=== PATIENT | female | born 1965 | race Caucasian/White ===

== ENCOUNTER 2017-07-28 13:11 | Emergency (ER) | payer OTHER ==
[~2017-07-28] VITALS: Ht 162.6 cm; Wt 49.0 kg
[~2017-07-28 13:11] MED LIST: AMBIEN5 MG PO; BACTRIM DS TAB1 EACH PO; CEPHALEXIN500 MG PO; CYMBALTA60 MG PO; EYE ALLERGY REL15 M1 OPTH; FETZIMA80 MG PO; FLONASE ALLERG9.9 ML NS; GAS RELIEF125 M1 PO; HYDROCODON-ACE1 EA10 PO; IMITREX100 MG PO; LORAZEPAM1 MG PO; LYRICA75 MG PO; MELATONIN5 M4 PO; METHADONE HCL5 MG; MOBIC15 MG PO; SEROQUEL100 MG PO; SUDOGEST30 MG PO; TIMOLOL MALEATE5 MG PO; TYLENOL325 MG PO; ZANAFLEX4 MG PO
[2017-07-28] MEDS ORDERED: MELOXICAM15 MG PO (13:30)
[2017-07-28] MEDS ORDERED: FUROSEMIDE40 MG PO (13:31)
--- OUTSIDE RECORDS SUMMARY | 2017-07-28 14:42 | XMS ---
Demographics + + + | Address | [address] | | | [place] [address] | + + + | Preferred Language | Unknown | + + + | Marital Status | Unknown | + + + | Holiness Affiliation | Unknown | + + + | Race | Unknown | + + + | Ethnic Group | Unknown | + + + Author + + + | Author | [facility] | + + + | Organization | [facility] | + + + | Address | [address] | | | [place] [address] | + + + | Phone | | + + + Care Team Providers + + + + | Care Mobile Home Technician Name | Role | Phone | + + + + Unavailable | Unavailable | + + + + PROBLEMS +---------+ + + +--------+ + + | Type | Condition | ICD9-CM | [id number] | Onset | Condition | SNOMED | | | | Code | Code | Dates | Status | Code | +---------+ + + +--------+ + + | Problem | Vitamin | D51.8 | | | Active | [id number] | | | B12 | | | | | | | | deficiency | | | | | | | | (dietary) | | | | | | | | anemia | | | | | | +---------+ + + +--------+ + + | Problem | PTSD | | F43.10 | | Active | 49553821 | | | (post-trau | | | | | | | | matic | | | | | | | | stress | | | | | | | | disorder) | | | | | | +---------+ + + +--------+ + + | Problem | History of | Z98.89 | | | Active | [id number] | | | gastric | | | | | | | | bypass | | | | | | +---------+ + + +--------+ + + | Problem | Low back | | M54.5 | | Active | 566243725 | | | pain | | | | | | +---------+ + + +--------+ + + | Problem | Fibromyalg | | M79.7 | | Active | 362155458 | | | ia | | | | | | +---------+ + + +--------+ + + | Problem | History of | Z87.39 | | | Active | [id number] | | | | | | | | | | | fibromyalg | | | | | | | | ia | | | | | | +---------+ + + +--------+ + + | Problem | Severe | F32.2 | | | Active | 425819979 | | | major | | | | | | | | depression | | | | | | +---------+ + + +--------+ + + | Problem | Chronic | | G89.4 | | Active | 403303978 | | | pain | | | | | | | | syndrome | | | | | | +---------+ + + +--------+ + + | Problem | Osteoarthr | | M19.90 | | Active | 757523970 | | | itis | | | | | | +---------+ + + +--------+ + + | Problem | JOINT | 719.47 | | | Active | 362514521 | | | PAIN-ANKLE | | | | | | +---------+ + + +--------+ + + | Problem | FX CARPAL | 814.00 | | | Active | 1665717 | | | BONE | | | | | | | | NOS-CLOSED | | | | | | +---------+ + + +--------+ + + | Problem | HAND | 959.4 | | | Active | 846343255 | | | INJURY NOS | | | | | | +---------+ + + +--------+ + + | Problem | JOINT | 719.43 | | | Active | [id number] | | | PAIN-FOREA | | | | | | | | RM | | | | | | +---------+ + + +--------+ + + | Problem | Localized | 715.34 | | | Active | 41485244 | | | osteoarthr | | | | | | | | osis | | | | | | | | uncertain | | | | | | | | if primary | | | | | | | | or | | | | | | | | secondary | | | | | | | | NOS, hand | | | | | | +---------+ + + +--------+ + + | Problem | FX | 815.00 | | | Active | 383612285 | | | METACARPAL | | | | | | | | | | | | | | | | NOS-CLOSED | | | | | | +---------+ + + +--------+ + + | Problem | Greater | 726.5 | | | Active | 64522239 | | | Trochanter | | | | | | | | ic | | | | | | | | Bursitis | | | | | | +---------+ + + +--------+ + + ALLERGIES Unknown Allergies SOCIAL HISTORY No smoking Hx information available PLAN OF CARE VITAL SIGNS MEDICATIONS + + +--------+ + + + +--------+ | Medicati | Instruct | Dosage | Frequenc | Start | End Date | Duration | Status | | on | ions | | y | Date | | | | + + +--------+ + + + +--------+ | KCL 20 | po Daily | 1 | | 29 Kasi, | | 30 | Active | | mEq | with | | | 2016 | | | | | | food | | | | | | | + + +--------+ + + + +--------+ RESULTS No Results PROCEDURES No Known procedures IMMUNIZATIONS No Known Immunizations"
--- OUTSIDE RECORDS SUMMARY | 2017-07-28 14:42 | XMS ---
Demographics + + + | Address | [address] | | | [place] [address] | + + + | Preferred Language | Unknown | + + + | Marital Status | Unknown | + + + | Restoration Affiliation | Unknown | + + + | Race | Unknown | + + + | Ethnic Group | Unknown | + + + Author + + + | Author | [facility] | + + + | Organization | [facility] | + + + | Address | [address] | | | [place] [address] | + + + | Phone | | + + + Care Team Providers + + + + | Care Capacitor Assembler Name | Role | Phone | + + + + Unavailable | Unavailable | + + + + PROBLEMS +---------+ + + +--------+ + + | Type | Condition | ICD9-CM | [id number] | Onset | Condition | SNOMED | | | | Code | Code | Dates | Status | Code | +---------+ + + +--------+ + + | Problem | Vitamin | D51.8 | | | Active | [id number] | | | B12 | | | | | | | | deficiency | | | | | | | | (dietary) | | | | | | | | anemia | | | | | | +---------+ + + +--------+ + + | Problem | PTSD | | F43.10 | | Active | 26306032 | | | (post-trau | | | | | | | | matic | | | | | | | | stress | | | | | | | | disorder) | | | | | | +---------+ + + +--------+ + + | Problem | History of | Z98.89 | | | Active | 410535844 | | | gastric | | | | | | | | bypass | | | | | | +---------+ + + +--------+ + + | Problem | Low back | | M54.5 | | Active | 565419725 | | | pain | | | | | | +---------+ + + +--------+ + + | Problem | Fibromyalg | | M79.7 | | Active | 839972783 | | | ia | | | | | | +---------+ + + +--------+ + + | Problem | History of | Z87.39 | | | Active | [id number] | | | | | | | | | | | fibromyalg | | | | | | | | ia | | | | | | +---------+ + + +--------+ + + | Problem | Severe | F32.2 | | | Active | 759597188 | | | major | | | | | | | | depression | | | | | | +---------+ + + +--------+ + + | Problem | Chronic | | G89.4 | | Active | 175760814 | | | pain | | | | | | | | syndrome | | | | | | +---------+ + + +--------+ + + | Problem | Osteoarthr | | M19.90 | | Active | 999713099 | | | itis | | | | | | +---------+ + + +--------+ + + | Problem | JOINT | 719.47 | | | Active | 873143579 | | | PAIN-ANKLE | | | | | | +---------+ + + +--------+ + + | Problem | FX CARPAL | 814.00 | | | Active | 3619195 | | | BONE | | | | | | | | NOS-CLOSED | | | | | | +---------+ + + +--------+ + + | Problem | HAND | 959.4 | | | Active | 839538152 | | | INJURY NOS | | | | | | +---------+ + + +--------+ + + | Problem | JOINT | 719.43 | | | Active | 091838760 | | | PAIN-FOREA | | | | | | | | RM | | | | | | +---------+ + + +--------+ + + | Problem | Localized | 715.34 | | | Active | 37672659 | | | osteoarthr | | | [...] | 815.00 | | | Active | [id number] | | | METACARPAL | | | | | | | | | | | | | | | | NOS-CLOSED | | | | | | +---------+ + + +--------+ + + | Problem | Greater | 726.5 | | | Active | 50496794 | | | Trochanter | | | | | | | | ic | | | | | | | | Bursitis | | | | | | +---------+ + + +--------+ + + ALLERGIES Unknown Allergies SOCIAL HISTORY No smoking Hx information available PLAN OF CARE VITAL SIGNS MEDICATIONS + + + + + + + +--------+ | Medicati | Instruct | Dosage | Frequenc | Start | End Date | Duration | Status | | on | ions | | y | Date | | | | + + + + + + + +--------+ | KCL 20 | po bid | 1 tablet | 12h | 13 Claudy, | | 30 | Active | | mEq | | | | 2016 | | | | + + + + + + + +--------+ | Lasix 40 | Orally | 1 tab | | 13 Claudy, | | 30 | Active | | MG | once a | | | 2017 | | day(s) | | | | day in | | | | | | | | | am | | | | | | | + + + + + + + +--------+ RESULTS No Results PROCEDURES No Known procedures IMMUNIZATIONS No Known Immunizations"
--- OUTSIDE RECORDS SUMMARY | 2017-07-28 14:42 | XMS ---
Demographics + + + | Address | [address] | | | [place] [address] | + + + | Preferred Language | Unknown | + + + | Marital Status | Unknown | + + + | Jainism Affiliation | Unknown | + + + | Race | Unknown | + + + | Ethnic Group | Unknown | + + + Author + + + | Author | [facility] | + + + | Organization | [facility] | + + + | Address | [address] | | | [place] [address] | + + + | Phone | | + + + Care Team Providers + + + + | Care School Attendance Secretary Name | Role | Phone | + + + + Unavailable | Unavailable | + + + + PROBLEMS +---------+ + + +--------+ + + | Type | Condition | ICD9-CM | [id number] | Onset | Condition | SNOMED | | | | Code | Code | Dates | Status | Code | +---------+ + + +--------+ + + | Problem | Vitamin | D51.8 | | | Active | 62832288 | | | B12 | | | | | | | | deficiency | | | | | | | | (dietary) | | | | | | | | anemia | | | | | | +---------+ + + +--------+ + + | Problem | PTSD | | F43.10 | | Active | 21528937 | | | (post-trau | | | | | | | | matic | | | | | | | | stress | | | | | | | | disorder) | | | | | | +---------+ + + +--------+ + + | Problem | History of | Z98.89 | | | Active | 827902776 | | | gastric | | | | | | | | bypass | | | | | | +---------+ + + +--------+ + + | Problem | Low back | | M54.5 | | Active | 284563561 | | | pain | | | | | | +---------+ + + +--------+ + + | Problem | Fibromyalg | | M79.7 | | Active | 164903229 | | | ia | | | | | | +---------+ + + +--------+ + + | Problem | History of | Z87.39 | | | Active | 828208745 | | | | | | | | | | | fibromyalg | | | | | | | | ia | | | | | | +---------+ + + +--------+ + + | Problem | Severe | F32.2 | | | Active | 526806052 | | | major | | | | | | | | depression | | | | | | +---------+ + + +--------+ + + | Problem | Chronic | | G89.4 | | Active | 287601523 | | | pain | | | | | | | | syndrome | | | | | | +---------+ + + +--------+ + + | Problem | Osteoarthr | | M19.90 | | Active | 219151479 | | | itis | | | | | | +---------+ + + +--------+ + + | Problem | JOINT | 719.47 | | | Active | 217362298 | | | PAIN-ANKLE | | | | | | +---------+ + + +--------+ + + | Problem | FX CARPAL | 814.00 | | | Active | 9595617 | | | BONE | | | | | | | | NOS-CLOSED | | | | | | +---------+ + + +--------+ + + | Problem | HAND | 959.4 | | | Active | 373287653 | | | INJURY NOS | | | | | | +---------+ + + +--------+ + + | Problem | JOINT | 719.43 | | | Active | [id number] | | | PAIN-FOREA | | | | | | | | RM | | | | | | +---------+ + + +--------+ + + | Problem | Localized | 715.34 | | | Active | 09251602 | | | osteoarthr | | | [...] | 815.00 | | | Active | 851285134 | | | METACARPAL | | | | | | | | | | | | | | | | NOS-CLOSED | | | | | | +---------+ + + +--------+ + + | Problem | Greater | 726.5 | | | Active | 44240508 | | | Trochanter | | | | | | | | ic | | | | | | | | Bursitis | | | | | | +---------+ + + +--------+ + + ALLERGIES No Information SOCIAL HISTORY Never Assessed PLAN OF CARE VITAL SIGNS MEDICATIONS Unknown Medications RESULTS No Results PROCEDURES No Known procedures IMMUNIZATIONS No Known Immunizations MEDICAL (GENERAL) HISTORY + + +------+ | Type | Description | Date | + + +------+ | Medical History | gastric bypass 1997 | | + + +------+ | Medical History | depression | | + + +------+ | Medical History | anxiety | | + + +------+ | Medical History | spinal defect | | + + +------+ | 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 | | + + +------+ | Medical History | Spondylolisthesis in L5. | | + + +------+ | Surgical History | gastric bypass | | + + +------+ | Surgical History | C section x1 | | + + +------+ | Surgical History | Umbilical hernia repair | | | | abdominal x2 | | + + +------+ | Surgical History | cholecystectomy | | + + +------+ | Surgical History | fistula | | + + +------+ | Hospitalization History | surgery | | + + +------+ | Hospitalization History | childbirth x 3 | | + + +------+"
--- OUTSIDE RECORDS SUMMARY | 2017-07-28 14:42 | XMS ---
Demographics + + + | Address | [address] | | | [place] [address] | + + + | Preferred Language | Unknown | + + + | Marital Status | Unknown | + + + | Mandaen Affiliation | Unknown | + + + | Race | Unknown | + + + | Ethnic Group | Unknown | + + + Author + + + | Author | [facility] | + + + | Organization | [facility] | + + + | Address | [address] | | | [place] [address] | + + + | Phone | | + + + Care Team Providers + + + + | Care Shipper Name | Role | Phone | + + + + Unavailable | Unavailable | + + + + PROBLEMS +---------+ + + +--------+ + + | Type | Condition | ICD9-CM | [id number] | Onset | Condition | SNOMED | | | | Code | Code | Dates | Status | Code | +---------+ + + +--------+ + + | Problem | Vitamin | D51.8 | | | Active | [id number] | | | B12 | | | | | | | | deficiency | | | | | | | | (dietary) | | | | | | | | anemia | | | | | | +---------+ + + +--------+ + + | Problem | PTSD | | F43.10 | | Active | [id number] | | | (post-trau | | | | | | | | matic | | | | | | | | stress | | | | | | | | disorder) | | | | | | +---------+ + + +--------+ + + | Problem | History of | Z98.89 | | | Active | [id number] | | | gastric | | | | | | | | bypass | | | | | | +---------+ + + +--------+ + + | Problem | Low back | | M54.5 | | Active | 036883259 | | | pain | | | | | | +---------+ + + +--------+ + + | Problem | Fibromyalg | | M79.7 | | Active | 259585161 | | | ia | | | | | | +---------+ + + +--------+ + + | Problem | History of | Z87.39 | | | Active | 172437547 | | | | | | | | | | | fibromyalg | | | | | | | | ia | | | | | | +---------+ + + +--------+ + + | Problem | Severe | F32.2 | | | Active | 389554282 | | | major | | | | | | | | depression | | | | | | +---------+ + + +--------+ + + | Problem | Chronic | | G89.4 | | Active | 347666258 | | | pain | | | | | | | | syndrome | | | | | | +---------+ + + +--------+ + + | Problem | Osteoarthr | | M19.90 | | Active | 305085335 | | | itis | | | | | | +---------+ + + +--------+ + + | Problem | JOINT | 719.47 | | | Active | 610508874 | | | PAIN-ANKLE | | | | | | +---------+ + + +--------+ + + | Problem | FX CARPAL | 814.00 | | | Active | 8919970 | | | BONE | | | | | | | | NOS-CLOSED | | | | | | +---------+ + + +--------+ + + | Problem | HAND | 959.4 | | | Active | 862875919 | | | INJURY NOS | | | | | | +---------+ + + +--------+ + + | Problem | JOINT | 719.43 | | | Active | [id number] | | | PAIN-FOREA | | | | | | | | RM | | | | | | +---------+ + + +--------+ + + | Problem | Localized | 715.34 | | | Active | 75800615 | | | osteoarthr | | | [...] | 815.00 | | | Active | [id number] | | | METACARPAL | | | | | | | | | | | | | | | | NOS-CLOSED | | | | | | +---------+ + + +--------+ + + | Problem | Greater | 726.5 | | | Active | 56746839 | | | Trochanter | | | | | | | | ic | | | | | | | | Bursitis | | | | | | +---------+ + + +--------+ + + ALLERGIES No Information SOCIAL HISTORY Never Assessed PLAN OF CARE VITAL SIGNS MEDICATIONS + + +--------+ +--------+ + +--------+ | Medicati | Instruct | Dosage | Frequenc | Start | End Date | Duration | Status | | on | ions | | y | Date | | | | + + +--------+ +--------+ + +--------+ | Lyrica | po bid | 1tabs | 12h | | | 30 | Active | | 75 mg | | | | | | | | + + +--------+ +--------+ + +--------+ RESULTS No Results PROCEDURES No [...] weight loss about | | | | 0665-2925 | | + + +------+ | Medical [...]
--- OUTSIDE RECORDS SUMMARY | 2017-07-28 14:42 | XMS ---
Demographics + + + | Address | [address] | | | [place] [address] | + + + | Preferred Language | Unknown | + + + | Marital Status | Unknown | + + + | Yazdanism Affiliation | Unknown | + + + | Race | Unknown | + + + | Ethnic Group | Unknown | + + + Author + + + | Author | [facility] | + + + | Organization | [facility] | + + + | Address | [address] | | | [place] [address] | + + + | Phone | | + + + Care Team Providers + + + + | Care Assistant Case Manager Name | Role | Phone | + + + + Unavailable | Unavailable | + + + + PROBLEMS +---------+ + + +--------+ + + | Type | Condition | ICD9-CM | IVL00-UN | Onset | Condition | SNOMED | | | | Code | Code | Dates | Status | Code | +---------+ + + +--------+ + + | Problem | Vitamin | D51.8 | | | Active | [id number] | | | B12 | | | | | | | | deficiency | | | | | | | | (dietary) | | | | | | | | anemia | | | | | | +---------+ + + +--------+ + + | Problem | PTSD | | F43.10 | | Active | 52936642 | | | (post-trau | | | | | | | | matic | | | | | | | | stress | | | | | | | | disorder) | | | | | | +---------+ + + +--------+ + + | Problem | History of | Z98.89 | | | Active | [id number] | | | gastric | | | | | | | | bypass | | | | | | +---------+ + + +--------+ + + | Problem | Low back | | M54.5 | | Active | [id number] | | | pain | | | | | | +---------+ + + +--------+ + + | Problem | Fibromyalg | | M79.7 | | Active | 199430300 | | | ia | | | | | | +---------+ + + +--------+ + + | Problem | History of | Z87.39 | | | Active | 325555544 | | | | | | | | | | | fibromyalg | | | | | | | | ia | | | | | | +---------+ + + +--------+ + + | Problem | Severe | F32.2 | | | Active | [id number] | | | major | | | | | | | | depression | | | | | | +---------+ + + +--------+ + + | Problem | Chronic | | G89.4 | | Active | 187441676 | | | pain | | | | | | | | syndrome | | | | | | +---------+ + + +--------+ + + | Problem | Osteoarthr | | M19.90 | | Active | 216141347 | | | itis | | | | | | +---------+ + + +--------+ + + | Problem | JOINT | 719.47 | | | Active | 931878555 | | | PAIN-ANKLE | | | | | | +---------+ + + +--------+ + + | Problem | FX CARPAL | 814.00 | | | Active | 2659558 | | | BONE | | | | | | | | NOS-CLOSED | | | | | | +---------+ + + +--------+ + + | Problem | HAND | 959.4 | | | Active | [id number] | | | INJURY NOS | | | | | | +---------+ + + +--------+ + + | Problem | JOINT | 719.43 | | | Active | [id number] | | | PAIN-FOREA | | | | | | | | RM | | | | | | +---------+ + + +--------+ + + | Problem | Localized | 715.34 | | | Active | 76594528 | | | osteoarthr | | | [...] | 815.00 | | | Active | [id number] | | | METACARPAL | | | | | | | | | | | | | | | | NOS-CLOSED | | | | | | +---------+ + + +--------+ + + | Problem | Greater | 726.5 | | | Active | [id number] | | | Trochanter | | | | | | | | ic | | | | | | | | Bursitis | | | | | | +---------+ + + +--------+ + + ALLERGIES Unknown Allergies SOCIAL HISTORY No smoking Hx information available PLAN OF CARE + +---------+ | Activity | Details | + +---------+ +---+ | | +---+ + + + | Follow Up | prn Reason:null | + + + VITAL SIGNS + + + + | Height | 64 in | 2017-04-30 | + + + + | Weight | 123.0 lbs | 2017-04-30 | + + + + | BMI | 21.11 kg/m2 | 2017-04-30 | + + + + | Heart Rate | 82 /min | 2017-04-30 | + + + + | Blood pressure systolic | 76 mm Hg | 2017-04-30 | + + + + | Blood pressure diastolic | 51 mm Hg | 2017-04-30 | + + + + MEDICATIONS + + + + + + + +--------+ | Medicati | Instruct | Dosage | Frequenc | Start | End Date | Duration | Status | | on | ions | | y | Date | | | | + + + + + + + +--------+ | Sudafed | po 1 am | 1 tab | | 30 Mar, | | 15 | Active | | 30 mg | 1 noon | | | 2016 | | | | + + + + + + + +--------+ | Garamyci | Ophthalm | 1 drop | 4h | 06 May, | | 10 | Active | | n 0.3 % | ic every | into | | 2016 | | day(s) | | | | 4 hrs | affected | | | | | | | | | eye | | | | | | + + + + + + + +--------+ | Zolpidem | Orally | 1 tablet | 24h | | | | Active | | | Once a | at | | | | | | | Tartrate | day | bedtime | | | | | | | 10 MG | | as | | | | | | | | | needed | | | | | | + + + + + + + +--------+ | L-Methyl | Orally | 1 tablet | | | | | Active | | folate | once | | | | | | | | 15 MG | day | | | | | | | + + + + + + + +--------+ | Gas | | | | | | | Active | | Relief | | | | | | | | + + + + + + + +--------+ | Tizanidi | | TAKE 1 | | | | 30 | Active | | ne HCl 4 | | TABLET | | | | | | | | | BY MOUTH | | | | | | | | | EVERY 8 | | | | | | | | | HOURS | | | | | | | | | | | | | | | | | | NEEDED | | | | | | + + + + + + + +--------+ | Vitamin | Orally | 1 | | | | | Active | | D | Once a | capsule | | | | | | | (Ergocal | Week | | | | | | | | ciferol) | | | | | | | | | [address] | | | | | | | | | UNIT | | | | | | | | + + + + + + + +--------+ | Lyrica | po bid | 1tabs | 12h | | | 30 | Active | | 75 mg | | | | | | | | + + + + + + + +--------+ | Fluticas | Nasally | 2 spray | 24h | | | | Active | | one | Once a | in each | | | | | | | Propiona | day | nostril | | | | | | | te 50 | | | | | | | | | MCG/ACT | | | | | | | | + + + + + + + +--------+ | Loratadi | Orally | 1 tablet | 24h | | | | Active | | ne | Once a | on the | | | | | | | Allergy | day | tongue | | | | | | | Relief | | and | | | | | | | 10 MG | | allow to | | | | | | | | | | | | | | | | | | dissolve | | | | | | + + + + + + + +--------+ | Mucus | Orally | 1 tablet | 4h | | | | Active | | Relief | every 4 | as | | | | | | | DM | hrs | needed | | | | | | | 20-400 | | | | | | | | | MG | | | | | | | | + + + + + + + +--------+ | Fetzima | Orally | 1 | 24h | | | | Active | | 60 mg | Once a | capsule | | | | | | | | day | | | | | | | + + + + + + + +--------+ | Seroquel | Orally | 1 tablet | 12h | | | | Active | | 200 MG | Twice a | | | | | | | | | day | | | | | | | + + + + + + + +--------+ | Nasacort | Nasally | 1 puff | 24h | | | | Active | | AQ 55 | Once a | in each | | | | | | | MCG/ACT | day | nostril | | | | | | + + + + + + + +--------+ | Tylenol | Orally | 2 tablet | 6h | | | | Active | | 325 MG | every 6 | as | | | | | | | | hrs | needed | | | | | | + + + + + + + +--------+ | Melatoni | Orally | 1 tablet | 24h | | | | Active | | n 5 MG | Once a | at | | | | | | | | day | bedtime | | | | | | | | | as | | | | | | | | | needed | | | | | | | | | with | | | | | | | | | food | | | | | | + + + + + + + +--------+ | vitamin | subcutan | 0.5 mL | | | | 30 | Active | | B-12 500 | eously | (500mcg/ | | | | | | | | twice a | 0.5ml) | | | | | | | | month | | | | | | | + + + + + + + +--------+ | Gabapent | Orally | 1 | 8h | | | | Active | | in 400 | Three | capsule | | | | | | | MG | times a | | | | | | | | | day | | | | | | | + + + + + + + +--------+ | Dulcolax | Rectal | 1 | 24h | | | | Active | | 10 MG | Once a | supposit | | | | | | | | day | ory as | | | | | | | | | needed | | | | | | + + + + + + + +--------+ | Xanax | Orally | 1 tablet | | 31 Aug, | | | Active | | 0.5 MG | Take 1 | | | 2016 | | | | | | hour | | | | | | | | | before | | | | | | | | | MRI | | | | | | | + + + + + + + +--------+ | Meloxica | Orally | 1 tablet | 24h | | | 30 | Active | | m 15 MG | Once a | | | | | | | | | day | | | | | | | + + + + + + + +--------+ | Eye | Ophthalm | 1 drop | 6h | | | | Active | | Allergy | ic Four | into | | | | | | | Relief | times a | affected | | | | | | | 0.027-0. | day | eye as | | | | | | | 315 % | | needed | | | | | | + + + + + + + +--------+ RESULTS + +--------+ + + | Name | Result | Date | Reference Range | + +--------+ + + | Comp. Metabolic | | 2017-04-30 | | | Panel (14) | | | | + +--------+ + + | Calcium, Serum | | | | + +--------+ + + | Glucose, Serum | | | | + +--------+ + + | BUN | | | | + +--------+ + + | Protein, Total, | | | | | Serum | | | | + +--------+ + + | Albumin, Serum | | | | + +--------+ + + | Bilirubin, Total | | | | + +--------+ + + | Alkaline | | | | | Phosphatase, S | | | | + +--------+ + + | AST (SGOT) | | | | + +--------+ + + | Potassium, Serum | | | | + +--------+ + + | Sodium, Serum | | | | + +--------+ + + | Chloride, Serum | | | | + +--------+ + + | Creatinine, Serum | | | | + +--------+ + + | ALT (SGPT) | | | | + +--------+ + + | Carbon Dioxide, | | | | | Total | | | | + +--------+ + + | BUN/Creatinine | | | | | Ratio | | | | + +--------+ + + | Globulin, Total | | | | + +--------+ + + | A/G Ratio | | | | + +--------+ + + | CBC | | 2017-04-30 | | + +--------+ + + | WBC | | | | + +--------+ + + | RBC | | | | + +--------+ + + | HEMOGLOBIN | | | | + +--------+ + + | HEMATOCRIT | | | | + +--------+ + + | MCV | | | | + +--------+ + + | MCH | | | | + +--------+ + + | MCHC | | | | + +--------+ + + | RDW | | | | + +--------+ + + | LYMPHOCYTES | | | | + +--------+ + + | NEUTROPHILS | | | | + +--------+ + + | BANDS | | | | + +--------+ + + | MONOCYTES | | | | + +--------+ + + | EOSINOPHILS | | | | + +--------+ + + | BASOPHILS | | | | + +--------+ + + | OTHER | | | | + +--------+ + + | PLATELET COUNT | | | | + +--------+ + + | Serum FE Panel | | 2017-04-30 | | + +--------+ + + | X ray : Chest 2 | | 2017-04-30 | | | views | | | | + +--------+ + + PROCEDURES + + + + + | Procedure | Date Ordered | Related Diagnosis | Body Site | + + + + + | Est Level II | April 30, 2017 | | | | Limited | | | | + + + + + IMMUNIZATIONS No Known Immunizations"
--- OUTSIDE RECORDS SUMMARY | 2017-07-28 14:42 | XMS ---
Demographics + + + | Address | [address] | | | [place] [address] | + + + | Preferred Language | Unknown | + + + | Marital Status | Unknown | + + + | Presybeterian Affiliation | Unknown | + + + | Race | Unknown | + + + | Ethnic Group | Unknown | + + + Author + + + | Author | [facility] | + + + | Organization | [facility] | + + + | Address | [address] | | | [place] [address] | + + + | Phone | | + + + Care Team Providers + + + + | Care Operations Support Representative Name | Role | Phone | + + + + Unavailable | Unavailable | + + + + PROBLEMS +---------+ + + +--------+ + + | Type | Condition | ICD9-CM | [id number] | Onset | Condition | SNOMED | | | | Code | Code | Dates | Status | Code | +---------+ + + +--------+ + + | Problem | Vitamin | D51.8 | | | Active | [id number] | | | B12 | | | | | | | | deficiency | | | | | | | | (dietary) | | | | | | | | anemia | | | | | | +---------+ + + +--------+ + + | Problem | PTSD | | F43.10 | | Active | 40646174 | | | (post-trau | | | | | | | | matic | | | | | | | | stress | | | | | | | | disorder) | | | | | | +---------+ + + +--------+ + + | Problem | History of | Z98.89 | | | Active | [id number] | | | gastric | | | | | | | | bypass | | | | | | +---------+ + + +--------+ + + | Problem | Low back | | M54.5 | | Active | [id number] | | | pain | | | | | | +---------+ + + +--------+ + + | Problem | Fibromyalg | | M79.7 | | Active | [id number] | | | ia | | | | | | +---------+ + + +--------+ + + | Problem | History of | Z87.39 | | | Active | 678318810 | | | | | | | | | | | fibromyalg | | | | | | | | ia | | | | | | +---------+ + + +--------+ + + | Problem | Severe | F32.2 | | | Active | [id number] | | | major | | | | | | | | depression | | | | | | +---------+ + + +--------+ + + | Problem | Chronic | | G89.4 | | Active | 020109813 | | | pain | | | | | | | | syndrome | | | | | | +---------+ + + +--------+ + + | Problem | Osteoarthr | | M19.90 | | Active | 951978228 | | | itis | | | | | | +---------+ + + +--------+ + + | Problem | JOINT | 719.47 | | | Active | 183407401 | | | PAIN-ANKLE | | | | | | +---------+ + + +--------+ + + | Problem | FX CARPAL | 814.00 | | | Active | 0506511 | | | BONE | | | | | | | | NOS-CLOSED | | | | | | +---------+ + + +--------+ + + | Problem | HAND | 959.4 | | | Active | [id number] | | | INJURY NOS | | | | | | +---------+ + + +--------+ + + | Problem | JOINT | 719.43 | | | Active | [phone] | | | PAIN-FOREA | | | | | | | | RM | | | | | | +---------+ + + +--------+ + + | Problem | Localized | 715.34 | | | Active | 88067944 | | | osteoarthr | | | [...] | 815.00 | | | Active | [id number] | | | METACARPAL | | | | | | | | | | | | | | | | NOS-CLOSED | | | | | | +---------+ + + +--------+ + + | Problem | Greater | 726.5 | | | Active | [phone] | | | Trochanter | | | [...]
[2017-07-31] MEDS ORDERED: DULCOLAX5 MG PO (14:38)
[2017-07-31] MEDS ORDERED: ALLERCLEAR10 MG PO (14:39)
[2017-07-31] MEDS ORDERED: PHYSICIANS1000 MCG/1 INJ (14:40)
[2017-07-31] MEDS ORDERED: VITAMIN D50000 UNI1 PO (14:40)
== END 2017-07-28 17:19 | disposition home or self-care (01) ==
LOC: ED 13:11
DX: I95.9 Hypotension, unspecified (principal); D64.9 Anemia, unspecified; F32.9 Major depressive disorder, single episode, unspecified; Z98.84 Bariatric surgery status; Z90.49 Acquired absence of other specified parts of digestive tract; Z88.5 Allergy status to narcotic agent; Z88.8 Allergy status to other drugs, medicaments and biological substances; Z79.899 Other long term (current) drug therapy; Z79.51 Long term (current) use of inhaled steroids
CPT/HCPCS: 36415; 80053; 81001; 83605; 84484; 85025; 87077; 87088; 87186; 99283; J7030

== ENCOUNTER 2017-08-06 07:30 | Day surgery (SDC) | payer OTHER ==
[~2017-08-06] VITALS: Ht 162.6 cm; Wt 47.6 kg
[~2017-08-06 07:30] MED LIST changes: +ALLERCLEAR10 MG PO; +DULCOLAX5 MG PO; +FUROSEMIDE40 MG PO; +MELOXICAM15 MG PO; +PHYSICIANS1000 MCG/1 INJ; +VITAMIN D50000 UNI1 PO
--- NOTE | 2017-08-06 08:52 | NUR ---
08/06/17 0852 Kimmy Smith 0837 TO PACU, RESP EVEN UNLABORED.
--- NOTE | 2017-08-06 09:33 | NUR ---
0920 PT AWAKENS TO NAME. ASKING IF PROCEDURE IS COMPLETED. PT SAT UP IN BED. JUICE GIVEN. AT BEDSIDE.
--- NOTE | 2017-08-06 10:13 | NUR ---
0916 PT DRESSED INDEP. REPORTS NO DIZZINESS OR NAUSEA. JEWELRY WAS PLACED IN A DENTURE CUP UPON ADMIT AND GIVEN TO WHO PLACED IT IN THE CLOTHING BAG. DENTURE CUP WITH JEWELRY GIVEN TO PATIENT AND PATIENT PLACED IT IN HER PURSE. PT TAKEN VIA WC TO CAR WITH .
--- NOTE | 2017-08-06 14:14 | OR ---
[facility] [address] [place], [place] [address] Signed DATE OF PROCEDURE: 08/06/17 PREOPERATIVE DIAGNOSIS Iron-deficiency anemia. Poor bowel prep. PROCEDURES: Colonoscopy (rectum only). ESTIMATED BLOOD LOSS: None. INDICATIONS Hunter is a 52-year-old female, who in 1996 underwent gastric bypass surgery with Dr. Crum in the [facility]. She has had a lot of trouble with malnutrition and cachexia. She has also has iron deficiency anemia. A few weeks ago we had her scheduled for both upper and lower endoscopy. The upper endoscopy was unremarkable. The lower endoscopy had a poor bowel prep and we could only go up about 35 cm. Consequently, we had to reschedule her. She was asked to do 2 full days of bowel prep. She presents today for follow-up colonoscopy. She remains in ASA class 4 and consequently we always have an anesthesia provider help us with increased monitoring sedation for Hunter. She and her expressed understanding and wished to proceed. PROCEDURE IN DETAIL Hunter was taken into our endoscopy suite and placed in the left lateral decubitus position. She was given IV sedation with Propofol per nurse fund accountant. A digital rectal exam was performed and I immediately encountered a large amount of soft severino-like brown stool. We passed the colonoscope into the rectum and she had the rectum plugged with this brown severino-like stool. We could not push it out of the way. We could not irrigate it. We could not get the scope around it. Consequently, we had to abandon her colonoscopy for the second time. After this, the gas was suctioned out and the colonoscope removed. Hunter tolerated the procedure quite well. RECOMMENDATIONS Hunter can follow up my office as needed. She can follow up with her primary care provider as routinely scheduled. Anna Carina, MD AB/Modl Electronically Signed By: ANNA ARROYO MD 08/06/17 1414 PATIENT NAME: HUNTER ANDERSON OPERATIVE REPORT DATE OF : 61 PHYSICIAN: ANNA ARROYO MD REPORT #: [id number] REPORT IS CONFIDENTIAL AND NOT TO BE RELEASED WITHOUT AUTHORIZATION [address] [place] [address] Signed /[id number] cc: Marciano Montes MD Electronically Signed By: ANNA ARROYO MD 08/06/17 1414 PATIENT NAME: HUNTER ANDERSON OPERATIVE REPORT DATE OF : 61 PHYSICIAN: ANNA ARROYO MD REPORT #: [id number] REPORT IS CONFIDENTIAL AND NOT TO BE RELEASED WITHOUT AUTHORIZATION
== END 2017-08-06 09:55 | disposition home or self-care (01) ==
LOC: OPS 07:30 → DS 07:30 → OPS 08:15 → DS 08:15 → OPS 09:55
PROVIDERS: Colon & Rectal Surgery
PROC: 0DJD8ZZ Inspection of Lower Intestinal Tract, Via Natural or Artificial Opening Endoscopic (ICD-10-PCS; principal; 2017-08-06 08:15)
DX: D50.9 Iron deficiency anemia, unspecified (principal); F32.9 Major depressive disorder, single episode, unspecified; M79.7 Fibromyalgia; G89.4 Chronic pain syndrome; M19.042 Primary osteoarthritis, left hand; Z86.010 Personal history of colon polyps; Z90.49 Acquired absence of other specified parts of digestive tract; Z98.84 Bariatric surgery status; Z87.891 Personal history of nicotine dependence; Z88.5 Allergy status to narcotic agent; Z88.8 Allergy status to other drugs, medicaments and biological substances; Z98.890 Other specified postprocedural states; Z79.899 Other long term (current) drug therapy
CPT/HCPCS: 00810; J2250; J2704; J3010; J7120

== ENCOUNTER 2017-08-08 12:20 | Inpatient (IN) | payer OTHER ==
[~2017-08-08] VITALS: Ht 162.6 cm; Wt 49.9 kg
--- NOTE | 2017-08-08 18:21 | NUR ---
DRESSING ON IV SITE CHANGED, PT [place] WELL. SITE FLUSHES EASILY, SOME ECCOMOTIC BRUISING NOTE AT SITE. SCATTERED BRUISING NOTED ALL OVER ALL FOUR LIMBS. PT ALERT ONLY TO SELF, ANSWERS TO HER NAME. TALKS IN FULL SENTENCES, NOT PERTINENT TO CONVERSATION. PT ANSWERS QUESTIONS WITH COMMENTS THAT ARE NOT RELAVANT. PT KEEPS TALKING ABOUT "BABIES" THAT SHE AND HER HAVE.
--- NOTE | 2017-08-08 19:08 | NUR ---
PT UNABLE TO SIT STILL IN BED TURNING AND REPOSITIONING CONSTANTLY. PT TOOK OFF ATTENDS, AND PULLED CHUCKS OUT FROM UNDER HER. PT DIFFICULT TO REDIRECT. PT NOT VIOLENT, HAS DIFFICULTY COOPERATING. PT ABLE TO [place] JELLO AND APPLE JUICE, NEEDS ASSISTANCE WITH FEEDING.
--- NOTE | 2017-08-08 20:03 | NUR ---
LAB IN TO DRAW
--- NOTE | 2017-08-08 20:21 | NUR ---
PT IS RESTLESS AND TRYING TO GET OUT OF BED. AUDIO VISUAL TECH DOES NOT WANT TO DRAW BLOOD AT THIS TIME, WILL WAIT FOR PT TO CALM DOWN.
--- NOTE | 2017-08-08 20:40 | NUR ---
CALL TO DR FARIA TO UPDATE REGARDING PT'S AGITATION/CLIMGING OUT OF BED AND PULLING AT LINES. ORDER GIVEN FOR SEROQUEL.
--- NOTE | 2017-08-08 21:00 | NUR ---
PT GIVEN SEROQUEL WITH APPLESAUCE, CONTINUES TO BE CONFUSED TO PLACE, TIME, SITUATION. DAUGHTERS ARRIVE TO SEE PT AND THEY ARE IN CALMING AND TALKING WITH PT.
--- NOTE | 2017-08-08 22:00 | NUR ---
FLAGYL INFUSING, PT IS RESTING, CALL LIGHT IN REACH, MAKES NEEDS KNWON. NO ACUTE DISTRESS. WILL PLAN TO ENCOURAGE RESPIRATORY EXERCISING DEVICES DURING THE NIGHT. PT IS CURRENTLY TIRED AND NEEDS REST.
--- NOTE | 2017-08-08 22:14 | EKG ---
[facility] [address] [facility] [place] [address] Signed Normal sinus rhythm Nonspecific T wave abnormality Abnormal ECG No previous ECGs available Confirmed by GARRISON FARIA MD ([id number]) on 08/08/2017 10:14:41 PM Electronically Signed By: GARRISON FARIA MD 08/08/17 2214 PATIENT NAME: HUNTER ANDERSON LEIGHTON Electrocardiogram DATE OF : 61 PHYSICIAN: GARRISON FARIA MD REPORT #: [id number] REPORT IS CONFIDENTIAL AND NOT TO BE RELEASED WITHOUT AUTHORIZATION
--- NOTE | 2017-08-08 22:50 | NUR ---
CALL TO DR FARIA TO UPDATE ON LABS AND LACTIC ACID, ORDERS GIVEN FOR ADDITIONAL LABS IN THE AM, WILL CONTINUE TO CLOSELY MONITOR PTS VITAL SIGNS AND URINE OUTPUT. DAUGHTERS AT BEDSIDE, LEVI MAKER SITTING ONE ON ONE WITH PT SHE CONTINUES TO BE RESTLESS AND ATTEMPTING TO CLIMB OUT OF BED.
--- NOTE | 2017-08-09 00:39 | NUR ---
PT AWAKENS, STARTS FIDGETTING, CRAWLING OUT OF BED, REPOSITIONED, WARM BLANKET GIVEN AND PT SETTLES DOWN TO GO TO SLEEP. CONTINUES TO BE CONFUSED TO ALL BUT SELF.
--- NOTE | 2017-08-09 03:50 | NUR ---
PT AWAKENS, UP TO BSC THEN BACK TO BED TO TRY TO SLEEP, SEEMS A BIT LESS FIDGETY AT THIS TIME, ASSESSMENT DONE, LUNGS CLEAR, AFEBRILE, URINE OUTPUT IS STILL QUANTITY SUFFICIENT.
--- NOTE | 2017-08-09 06:30 | NUR ---
PT AWAKENS FOR LAB DRAW, THEN SITS UP IN BED REQUESTING A SANDWICH. SANDWICH AND SOUP GIVEN. PT MUCH LESS AGITATED NOW, SEEMS TO BE LESS CONFUSED.
--- NOTE | 2017-08-09 08:00 | NUR ---
PT IS SITTING UP IN BED EATING HER BREAKFAST. BOTH DAUGHTERS ARE IN THE ROOM.
--- NOTE | 2017-08-09 08:12 | NUR ---
BOTH IV SITES INTACT, NO REDNESS OR SWELLING NOTED, FLUSH EASILY. PT DENIES PAIN AT EITHER SITE. IV SITES LEAK SLIGHTLY AND HAVE BEEN NOTED TO LEAK SINCE PLACEMENT. PT IS MORE ALERT TODAY, ABLE TO HAVE A COHERENT CONVERSATION, NOT ORIENTED TO PLACE, YEAR, OR EVENT. PT IS ORIENTED TO FAMILY MEMBERS, WILL ANSWER TO HER NAME.
--- NOTE | 2017-08-09 08:53 | NUR ---
FULL BED BATH DONE, SHAMPOO CAP, LINENS CHANGED. PT ABLE TO STAND AND GET TO BEDSIDE COMMODE, THEN BACK TO BED. PT STATES "I FEEL LIKE I NEED TO PEE", PT REMINDED THAT SHE HAS A [facility] URINARY CATH IN PLACE.
--- NOTE | 2017-08-09 09:23 | NUR ---
LEOS CATH REMOVED, NANCI CARE COMPLETED. PT GEORGIA WELL.
[2017-08-09] MEDS ORDERED: BONIVA150 MG PO (10:05)
[2017-08-09] MEDS ORDERED: POTASSIUM CHLO20 ME1 PO (10:22)
--- NOTE | 2017-08-09 11:45 | NUR ---
LIDOCANE PATCH PLACED ON PT RT LOW BACK. PT GE[place] WELL. VITAL SIGNS WNL AT THIS TIME.
--- NOTE | 2017-08-09 11:55 | NUR ---
Medications reconciled by pharmacist using pharmacy records, inspecting prescription vials that patient's family brought in. Some medications have not been filled for quite some time. Those medications were removed from medication reconciliation record in [facility] (quetiapine, levomefolate). Patient takes Fetzima (levominacipran) 80mg daily. As pharmacy does not have this medication, patient will take their own, should hospitalist choose to order it for inpatient administration.
--- NOTE | 2017-08-09 13:06 | NUR ---
PT USED BESIDE COMMODE WAS ABLE TO VOID UNRINE, THEN RETURNED TO BED AND IS SITTING UP FINISHING HER LUNCH
[2017-08-09] MEDS ORDERED: IRON325 M1 PO (13:46)
--- NOTE | 2017-08-09 14:40 | NUR ---
CALLED TO UPDATE ON PT REQUEST FOR SIMETHICONE. DAUGHTER OF THE PT STATES SHE USES IT AT HOME FOR GAS PAIN MANAGEMENT. ORDER GIVEN FOR PRN SIMETHICONE.
--- NOTE | 2017-08-09 15:32 | NUR ---
IV SITE IN PT RT AC PULLED OUT BY PT. PT STATES "THE TAPE WAS HURTING ME". NOTED SMALL SKIN TEAR WHERE TAPE WAS REMOVED.
--- NOTE | 2017-08-09 16:09 | NUR ---
PT USED BEDSIDE COMMODE, THEN RETURNED TO BED AND IS NOW RESTING SAFELY WITH CALL LIGHT IN REACH AND FAMILY IN ROOM.
--- NOTE | 2017-08-09 16:50 | NUR ---
IV SITE REDRESSED DUE TO PT PULLING ON TAPE. IV SITE INTACT, NO REDNESS OR SWELLING NOTED, FLUIDS INFUSING EASILY.
--- NOTE | 2017-08-09 17:08 | NUR ---
PT USED BEDSIDE COMMODE AND IS NOW BACK IN BED WITH CALL LIGHT IN REACH AND DAUGHTER IN ROOM
--- NOTE | 2017-08-09 19:35 | NUR ---
PT MOSTLY STAYED IN BED ALL DAY, WITH STAND AND PIVOT TO BEDSIDE COMMODE. PT REFUSED TO AMBULATE IN THE HALLS WITH DAUGHTERS, STATING "I JUST DON'T FEEL WELL ENOUGH TO". PT ABLE TO EAT SMALL AMOUNT OF FOOD AT EACH MEAL, POST MEAL STOMACH CRAMPING REPORTED. PT C/O DISCOMFORT IN HIPS/BACK/STOMACH, PT STATES THIS DISCOMFORT IS CHRONIC FOR HER. PT BECOMING MORE ORIENTED, STILL HAS MOMENTS OF NON-REALITY.
--- NOTE | 2017-08-09 19:58 | NUR ---
UP TO BSC TO VOID 75ML CLEAR URINE.
--- NOTE | 2017-08-09 21:15 | NUR ---
IN TO DO HS MEDS, PT HAVING A BIT OF CONFUSION AND HAS BEGUN TO PICK AT SHEETS AND IV TUBING MORE. DAUGHTER AT BEDSIDE. BED ALARM ON.
--- NOTE | 2017-08-09 22:00 | NUR ---
PT COMPLAINING OF ABDOMINAL PAIN AND CHRONIC BACK PAIN. 500MG TYLENOL GIVEN.
--- NOTE | 2017-08-09 22:48 | NUR ---
PT IS RESTFUL AND SLEEPING, RESP EVEN AND UNLABORED. BED ALARM ON AND SIDE RAILS UP. DAUGHTER IS SPENDING THE NIGHT.
--- NOTE | 2017-08-10 00:45 | NUR ---
UP TO BSC TO VOID 75ML THEN BACK TO BED WITH BED ALARM ON.
--- NOTE | 2017-08-10 03:09 | NUR ---
PT CONTINUES TO SLEEP AND IS RESTFUL. RESP EVEN AND UNLABORED.
--- NOTE | 2017-08-10 06:13 | NUR ---
UP TO BSC TO VOID THEN BACK TO BED TO SLEEP.
--- NOTE | 2017-08-10 08:16 | NUR ---
LIDOCAINE PATCH PLACED ON PT'S LOW BACK. PT REQUESTING THIS FOR HER CHRONIC BACK PAIN. PT NOTED TO HAVE SIGNIFICANT BRUISING THROUGHOUT ENTIRE BODY. PATIENT'S DAUGHTER AT BEDSIDE AND ATTENTIVE AND HELPFUL WITH HER MOTHER. IVF GOING AT 75 ML/HR. PT ALERT, ORIENTED, AND FOLLOWS COMMANDS. PT REQUESTING TOMATO JUICE THIS AM. ASSESSMENT COMPLETE. PT APPEARS IN NO ACUTE DISTRESS. CONTINUE TO MONITOR.
[2017-08-10] MEDS ORDERED: L-METHYLFOLATE15 M1 PO (08:21)
[2017-08-10] MEDS ORDERED: SEROQUEL XR400 MG PO (08:25)
--- NOTE | 2017-08-10 08:27 | NUR ---
[facility] with [facility]'s daughter. Danna has not been taking crucial medications for a while and will be assessed and restarted per MD.
--- NOTE | 2017-08-10 09:54 | NUR ---
REPORT GIVEN TO JOANNE SOFIA ON MED/SURG. PT TO BE TRANSFERRED TO ROOM 113. PT HAS HAD A BETTER APPETITE THIS AM AND IS EATING WELL. PT HAS THUS FAR DRANK TOMATO JUICE, CREAM OF CHICKEN SOUP, VEGETABLE SOUP, AND DILL PICKLES. DR. LOPEZ HAS BEEN IN AND ASSESSED PATIENT THIS AM. PT'S DAUGHTER REMAINS IN ROOM AND VERY ATTENTIVE TO PATIENT. PT TO BE TRANSFERRED IN BED TO ROOM 113.
--- NOTE | 2017-08-10 10:48 | NUR ---
REPORT GIVEN BY JOANNE SERVIN. PT TRANSFERED OVER IN CHAIR. PT REQUESTED TO GO BACK TO BED. PT NOTED TO HAVE BRUISES ALL OVER HER BODY, SCATTERED SCABS HEALING. DAUGHTER AT BEDSIDE. PT IS APPROPRATE. LUNGS CLEAR, HEART REGULAR.
--- NOTE | 2017-08-10 13:32 | NUR ---
PT CALLED AND REQUESTED PAIN MEDICATION FOR 10/10 PAIN IN HER LOW BACK/HIPS. PRN TYLENOL AVAILABLE AND GIVEN. PT LAYING IN BED WITH FAMILY AT BEDSIDE. PT SMILING AND TALKING SOFTLY WITH FAMILY. PT ENJOYING WATCHING TV.
--- NOTE | 2017-08-10 13:50 | NUR ---
PT CALLED AND REQUESTED SOMETHING FOR HEARTBURN. NOTHING AVAILABLE ON JAN. CALLED DR LOPEZ WHO WILL ENTER AN ORDER FOR PT. PT HAS BEEN DRINKING TOMATO JUICE THAT IS NOT SETTING WELL.
--- NOTE | 2017-08-10 14:52 | NUR ---
PT C/O NAUSEA AFTER THERAPY. PRN ZOFRAN GIVEN.
--- NOTE | 2017-08-10 17:15 | NUR ---
PT TRANSFERED TO FLOOR MID-SHIFT. TOLERATED MOVE WELL. PT EATING AND DRINKING WELL. URINE OUTPUT ADQUATE. ENJOYS BOOST SHAKES (NOT ENSURE) AND SOFT FOODS. PARTICIPATED IN PHYSICAL THERAPY, REPORTED NAUSEA AFTER WALKING. PRN ZOFRAN GIVEN, WHICH WAS EFFECTIVE. REPORTED HEARTBURN AFTER LUNCH, RECIEVED ORDER FOR ONE TIME TUMS AND PRN MAALOX. TUMS GIVEN, EFFECTIVE. PT ONE PERSON ASSIST TO BATHROOM.
--- NOTE | 2017-08-10 18:29 | NUR ---
PT REPORTS GETTING UP TO THE BATHROOM WITH FAMILY ASSIST AND THREW UP A SMALL AMOUNT. PT REPORTS NO NAUSEA OR PAIN. PT ATTEMPTING TO EAT DINNER.
--- NOTE | 2017-08-10 19:17 | NUR ---
RECEIVED REPORT FROM RN. PATIENT DENIES NEEDS AT THIS TIME.
--- NOTE | 2017-08-10 21:16 | NUR ---
EVENING MEDICATION GIVEN, SHIFT ASSESSMENT DONE. PATIENT IS RESTING COMFORTABLY IN BED. CALL LIGHT WITHIN REACH, SHE DENIES NEEDS AT THIS TIME.
--- NOTE | 2017-08-11 01:01 | NUR ---
PATIENT RESTING COMFORTABLY IN BED. BREATHING IS EVEN AND UNLABORED. DENIES NEEDS AT THIS TIME. CALL LIGHT WITHIN REACH.
--- NOTE | 2017-08-11 05:49 | NUR ---
PATIENT'S NIGHT WAS UNEVENTFUL. SHE HAS BEEN RESTING COMFORTABLY THROUGHOUT SHIFT. VSS, PAIN TREATED WITH PRN TYLENOL. NO ACUTE CHANGES FROM BEGINNING OF SHIFT ASSESSMENT.
--- NOTE | 2017-08-11 07:06 | NUR ---
RECIEVED BEDSIDE REPORT FROM JOANNE AVALOS. PT WAS IN BED WITH EYES CLOSED. LAB IN ROOM DOING DRAW WITH JOANNE LONG ASSISTING.
--- NOTE | 2017-08-11 07:45 | NUR ---
MARKING STITCHER REPORTED THAT PT HAS NOT BEEN ABLE TO VOID FOR 5 HRS. BLADDER SCAN SHOWES 268ML. ENCOURAGED PT TO INCREASE FLUID INTAKE.
--- NOTE | 2017-08-11 10:45 | NUR ---
CHECKED ON PT, SLEEPING SOUNDLY WITH UNLABORED, EVEN BREATHING. FAMILY AT BEDSIDE.
--- NOTE | 2017-08-11 15:09 | NUR ---
PATIENT CALLED FOR PAIN MED. NURSE NOTIFIED
--- NOTE | 2017-08-11 15:09 | NUR ---
[facility], SERA RYAN, HERE FOR EVAL. DAUGHTER IN ROOM. PT REQUESTED PAIN MEDS, GIVEN.
--- NOTE | 2017-08-11 16:19 | NUR ---
PATIENT DID BED BATH AND SHAMPOO CAP DURING OT EVALUATION. NOW GOING IN TO DO A BLADDER SCAN.
--- NOTE | 2017-08-11 16:56 | NUR ---
ELECTRO WINNING OPERATOR REPORTED LOW URINE OUTPUT. PT WAS BLADDER SCANNED FOR 316ML, VOIDED 200. POST VOID RESIDUAL THEN SHOWED 346ML. MD AWARE, VERBAL TELEPHONE ORDER TO PLACE LEOS CATHETER.
--- NOTE | 2017-08-11 17:49 | NUR ---
PT HAD LOW URINE OUTPUT, MD AWARE. LEOS PLACED, POST VOID RESIDUAL SHOWED 346ML. PT HAS BANANA BAG RUNNING, OTHERWISE S/L. PT HAD [facility] CONSULT THIS SHIFT. NOT A DANGER TO SELF OR OTHERS, WILL SEEK [facility] IN [facility]. PACEMENT PENDING IN [place].
--- NOTE | 2017-08-11 19:00 | NUR ---
RECEIVED REPORT FROM RN. PATIENT IS CURRENTLY IN BATHROOM WITH TIERNEY.
--- NOTE | 2017-08-11 20:56 | NUR ---
PATIENT RESTING COMFORTABLY IN BED. SHIFT ASSESSMENT DONE, EVENING MEDICATIONS GIVEN. PATIENT DENIES NEEDS AT THIS TIME. CALL LIGHT WITHIN REACH.
--- NOTE | 2017-08-11 21:22 | NUR ---
nurse notified re bp.
--- NOTE | 2017-08-11 22:07 | NUR ---
NOTIFIED DR LOPEZ OF PT'S LOW OUTPUT AND LOW BP. NEW ORDER FOR BOLUS RECIEVED AND ENTERED BY RN.
--- NOTE | 2017-08-11 23:03 | NUR ---
PATIENT IS RESTING COMFORTABLY IN BED. BREATHING IS EVEN AND UNLABORED. CALL LIGHT WITHIN REACH, DAUGHTER AT BEDSIDE.
--- NOTE | 2017-08-12 01:42 | NUR ---
PATIENT RESTING COMFORTABLY IN BED. BREATHING IS EVEN AND UNLABORED. CALL LIGHT WITHIN REACH, DAUGHTER AT BEDSIDE.
--- NOTE | 2017-08-12 03:20 | NUR ---
UPDATED DR. LOPEZ ABOUT BP OF 79/53 AND URINE OUTPUT OF 100 ML. NO NEW ORDERS AT THIS TIME. PATIENT RESTING COMFORTABLY IN BED, BREATHING IS EVEN AND UNLABORED. CALL LIGHT WITHIN REACH.
--- NOTE | 2017-08-12 05:05 | NUR ---
PATIENT'S NIGHT HAS BEEN UNEVENTFUL. SHE HAS BEEN RESTING IN BED THROUGHOUT SHIFT. NO COMPLAINTS OF PAIN. BP HAS BEEN LOW THROUGHOUT SHIFT, WITH SYSTOLIC PRESSURES RANGING FROM 79-89, PULSE IN THE 80s. URINE OUTPUT HAS ALSO BEEN LOW. PER DR. LOPEZ, A 250 FLUID BOLUS WAS GIVEN PER EMAR. NO ACUTE CHANGES FROM BEGINNING OF SHIFT ASSESSMENT.
--- NOTE | 2017-08-12 06:35 | NUR ---
UPDATED DR. LOPEZ ABOUT 86/53 BP AND 25ML URINE OUTPUT. NO NEW ORDERS AT THIS TIME.
--- NOTE | 2017-08-12 07:10 | NUR ---
PT WAS LAYING IN BED, ABLE TO COMMUNICATE CLEARLY. SHE TOLD ME SHE WAS VERY TIRED AND DESIRED TO REST. HER DAUGHTER AND WERE IN THE ROOM. I EXTENDED A BLESSING, SHE THANKED ME. I WILL CONTINUE TO FOLLOW
--- NOTE | 2017-08-12 07:42 | NUR ---
BEDSIDE REPORT FROM [facility] RN, PT ALERT AND ORIENTED VERBALIZES NO NEEDS AT THIS TIME.
--- NOTE | 2017-08-12 09:48 | NUR ---
PT UP TO BATHROOM TO HAVE BM,NO SUCCESS.
--- NOTE | 2017-08-12 09:55 | NUR ---
DISCUSSED WITH THAT PT HAS NOT HAD BM SINCE 08/08/17
--- NOTE | 2017-08-12 10:04 | NUR ---
PT IS SITTING UP IN BED STILL WORKING ON HER BREAKFAST. PT'S DAUGHTER IS IN THE ROOM WELL. PT AGREED TO SHOWER BUT WOULD LIKE TO WAIT WILL CHECK AGAIN LATER
--- NOTE | 2017-08-12 10:47 | NUR ---
PT SPOUSE AT NURSES STATION FOR CARE UPDATE. PT HAS BEEN PUTTING OFF THERAPISTS, EDUCAITON GIVEN BY RN ON FLUIDS IN, LEOS CATH REMOVED THIS AM AT 0945, 9ML STERILE WATER REMOVED FROM BULB, PT TOLERATED WELL.
--- NOTE | 2017-08-12 11:09 | NUR ---
PT RESTING IN BED, EYES CLOSED RR EVEN 16BPM NO DISTRESS NOTED. PT'S DAUGHTER AT BEDSIDE, REQUESTED TO SPEAK TO DISCHARGE PLANNING AGAIN TODAY TO CONTIUE TO PLAN FOR CONTINUED CARE AFTER HOSPITAL DISCHARGE, RN NOTIFIED DISCHARGE PLANNING SPOKE WITH [facility].
--- NOTE | 2017-08-12 13:47 | NUR ---
DISCUSSED WITH THAT PT HAS LIMITED ACCESS I.V. SITES AND THAT SHE IS DUE FOR I.V. ROTATION PER POLICY. I.V. AT RIGHT SHOULDER IS WNL HAS BLOOD RETURN, PT REPORTS NO DISCOMFORT, NO REDNESS NOTED. SAID OK TO LEAVE IN [facility] TOMORROW SHE MAY BE ABLE TO DISCHARGE TO SNF AT THAT TIME.
--- NOTE | 2017-08-12 14:27 | NUR ---
PT IS SITTING UP IN BED WORKING ON EATING HER LUNCH. PT HAS NOT HAD TO VOID SINCE LEOS CATHETAR WAS REMOVED, NURSE AWARE. PT WAS REPOSITIONED UP HIGHER IN BED.
--- NOTE | 2017-08-12 14:33 | NUR ---
NOTIFIED PT UP TO VOID UNABLE TO AT THIS TIME. BLADDER SCANNED AT THIS TIME FOR 567ML. AND PT REPORTS "I FEEL LIKE I NEED TO GO, IT'S RIGHT THERE" OK WITH GIVEN HER A LITTLE MORE TIME TO VOID ON HER OWN. WILL HAVE HER GET UP TO ATTEMPT TO VOID AGAIN IN 1-2 HOURS.
--- NOTE | 2017-08-12 15:00 | NUR ---
CHECKED WITH PT TO SEE IF SHE WAS READY TO SHOWER, SHE DOES NOT WANT TO SHOWER NOW STATING SHE IS TOO TIRED, BUT WILL SHOWER TMW.
--- NOTE | 2017-08-12 15:38 | NUR ---
PT U TO BATHROOM AT THIS TIME TO ATTEMPT TO VOID.
--- NOTE | 2017-08-12 15:39 | NUR ---
CALLED [facility] AND TALKED WITH SHAYAN REGARDING ADMITTING THIS PT TO THEIR FACILITY. EXPLAINED THAT HER DAUGHTERS LIVE IN [facility] AND THEY WANT HER TO MOVE IN WITH THEM. HE SAID HE WOULD RUN HER INSURANCE AND GO FROM THERE. AND CALL US BACK.
--- NOTE | 2017-08-12 16:10 | NUR ---
PT UP AMBULATING IN HALLS WITH PHYSICAL THERAPY AT THIS TIME REPORTS SHE WAS UNABLE TO VOID, BLADDER SCANNED FOR 210ML, NOTED URINE YELLOW COLOR IN TOILET NOT IN HAT. MD NOTIFIED, NO NEW ORDERS AT THIS TIME
--- NOTE | 2017-08-12 16:41 | NUR ---
PT JUST GOT DONE WITH PHYSICAL THEAPY AND WAS TIRED. SHE DID NOT WANT TO DO OT. WILL SEE PT TOMORROW.
--- NOTE | 2017-08-12 17:18 | NUR ---
PT HAS BEEN UP FREQUENTLY TO BATHROOM, POOR APPETITE, LEOS CATH OUT THIS AM, PT HAS NOT VOIDED, SHE HAS BEEN BLADDER SCANNED AND IS PRODUCING URINE Q.S., NOTIFIED AND UPDATED OVER SHIFT. PT REPORTS LOW BACK PAIN HAS LIDODERM PATCH IN PLACE. SHE HAS NOT REPORTED PAIN OTHERWISE. WORKED WITH PHYSICAL THERAPY POSSIBLE DISCHARGE TO SNF IN [facility] TOMORROW, LVA ORDER TO LEAVE I.V. UNTIL TOMORROW.
--- NOTE | 2017-08-12 18:18 | NUR ---
PT IS SITTING YP IN BED WITH CALL LIGHT IN REACH. PT IS STILL WORKING ON HER DINNER. PT STILL SAYS SHE IS TOO TIRED TO SHOWER
--- NOTE | 2017-08-12 18:35 | NUR ---
PT REPORTS SHE DOES NOT FEEL LIKE SHE NEEDS TO VOID. BLADDER SCANNED AT THIS TIME FOR 140ML, WITH FBC BLADDER SCANNER. WILL NOTIFY
--- NOTE | 2017-08-12 18:52 | NUR ---
18 YORU[address] LEOS CATHETER PLACED 9ML STERILE WATER TO BALLOON. PT TOELRATED WELL, SPOUSE AT BEDSIDE. STERILE FIELD MAINTAINED THROUGHOUT. 100ML URINE RETURNED
--- NOTE | 2017-08-12 19:10 | NUR ---
RECEIVED REPORT FROM RN. PATIENT DENIES NEEDS AT THIS TIME.
--- NOTE | 2017-08-12 20:52 | NUR ---
ASSISTED PATIENT TO THE BATHROOM WITH WALKER. PATIENT HAS LEOS CATH. PATIENT IS BACK TO BED. GAVE WARM WASH CLOTH TO WASH FACE AND HANDS. CALL LIGHT WITHIN REACH.
--- NOTE | 2017-08-12 22:04 | NUR ---
SHIFT ASSESSMENT DONE. PATIENT IS RESTING COMFORTABLY IN BED, BREATHING IS EVEN AND UNLABORED. ENCOURAGED PATIENT TO EAT FOOD THAT DAUGHTER BROUGHT HER, WHICH THE PATIENT REFUSED. EDUCATED THE PATIENT ON THE IMPORTANCE OF NUTRITION AND HER CURRENT CONDITION. PATIENT APPEARED UNINTERESTED IN EDUCATION AND CONTINUED TO REFUSE TO EAT. SHE DENIES NEEDS AT THIS TIME. CALL LIGHT WITHIN REACH.
--- NOTE | 2017-08-13 01:34 | NUR ---
PATIENT IS RESTING COMFORTABLY IN BED. BREATHING IS EVEN AND UNLABORED. CALL LIGHT WITHIN REACH.
--- NOTE | 2017-08-13 04:50 | NUR ---
PATIENT IS RESTING COMFORTABLY IN BED. BREATHING IS EVEN AND UNLABORED. CALL LIGHT WITHIN REACH.
--- NOTE | 2017-08-13 05:16 | NUR ---
PATIENT'S NIGHT HAS BEEN UNEVENTFUL. SHE HAS BEEN RESTING IN BED THROUGHOUT SHIFT. VSS, PAIN HAS BEEN WELL CONTROLLED WITH PRN TYLENOL, SHE CONTINUES TO HAVE LOW URINE OUTPUT. THE PATIENT HAS BEEN ENCOURAGED TO EAT, INCLUDING A BOOST MILKSHAKE AND FOOD THAT WAS BROUGHT TO HER FROM HER FAMILY, BUT SHE CONTINUES TO REFUSE TO EAT. PATIENT IS TOELRATING AMBULATION WELL A 1PA WITH A FWW. SHE HAS NS RUNNING AT 75 ML/HR. NO ACUTE CHANGES FROM BEGINNING OF SHIFT ASSESSMENT.
--- NOTE | 2017-08-13 06:03 | NUR ---
PATIENT RESTING COMFORTABLY IN BED. BREATHING IS EVEN AND UNLABORED. PATIENT DENIES PAIN. CALL LIGHT WITHIN REACH.
--- NOTE | 2017-08-13 07:35 | NUR ---
BEDSIDE REPORT FROM [facility] RN, PT RESTING IN BED DROWSY, REPORTS NO NEEDS AT THIS TIME
--- NOTE | 2017-08-13 08:45 | NUR ---
PT CONSUMED LESS THAN 10% OF BREAKFAST, SHE AGREED TO EAT APPLESAUCE AFTER FURHTER EDUCATION FROM RN, APPLESAUCE PROVIDED.
--- NOTE | 2017-08-13 10:35 | NUR ---
UPDATED CLINICALS [facility]. CALLED AND SPOKE WITH TOWER OPERATOR SHAYAN. HE STATES THEY ARE WORKING ON FINDING A PROVIDER TO FOLLOW PATIENT. NO FURTHER REQUESTS AT THIS TIME. UPDATED PATIENT AND DAUGHTER, JESS IN ROOM.
--- NOTE | 2017-08-13 10:49 | NUR ---
SPOKE WITH SHAYAN MOON AT [facility]. THEY ARE WORKING ON SECURING A COVERING MD FOR PATIENT. WILL UPDATE US WHEN THIS IS IN PLACE. UPDATED FAMILY AND PATIENT.
--- NOTE | 2017-08-13 11:30 | NUR ---
PATIENTS DAUGHTER, JESS CAME TO MY OFFICE WITH QUESTIONS REGARDING INSURANCE AND ADVANCE DIRECTIVE. DISCUSSED INSURANCE ISSUES, WILL HAVE CHAR CONVEYOR TENDER CELLAR FROM HOSPITAL COME SEE THEM. CHW MANDEEP PROVIDING DAUGHTER AND PATIENT WITH ADVANCE DIRECTIVE PAPERWORK IN ROOM.
--- NOTE | 2017-08-13 12:40 | NUR ---
SPOKE WITH LEIGHTON FROM INSURANCE DEPARTMENT, SHE WILL COME SEE PATIENT THIS AFTERNOON.
--- NOTE | 2017-08-13 12:50 | NUR ---
RECEIVED A CALL FROM MANUEL AT [facility]. SHE IS REQUESTING LAST 24 HOURS OF NURSING NOTES. NOTES FAXED, CONFIRMATION RECEIVED.
--- NOTE | 2017-08-13 12:53 | NUR ---
PT RESTING IN BED, DAUGHTER REPORTS PT HAS BEEN SLEEPING SINCE LUNCH, AND THAT SHE CONSUMED A SMALL AMOUNT OF HER CHICKEN TACOS. NIO FOR MIRLAX AT THIS TIME PT HAS NOT HAD BM SINCE THE 6TH, NOTIFIED YESTURDAY, PT BOWEL TONE ACTIVE. MIRLAX MIXED IN CLEAR APPLE ENSURE.
--- NOTE | 2017-08-13 14:23 | NUR ---
PT DOING WELL. GOT SOME TOMATO JUICE FOR HER AND DID VITALS.
--- NOTE | 2017-08-13 17:23 | NUR ---
RN IN PT ROOM BEFORE DINNER TRAY ARRIVED TO HAVE LONG TALK WITH PT ABOUT IMPORTANCE OF EATING AND WORKING WITH PHYSICAL THERAPY DAUGHTER AT BEDSIDE.
--- NOTE | 2017-08-13 18:20 | NUR ---
PT HAS REQUIRED A GREAT DEAL OF ENCOURAGEMENT, SHE HAS INCREASED NUTRITIONAL INTAKE TODAY BUT STILL NOT SUFFICIENT INTAKE. SHE REFUSED TO WORK WITH PHYSICAL THERAPY, SHE WAS WILLING TO GET UP TO RECLINER FOR 1 HOUR AND 30 MIN. HER DAUGHTER HAS BEEN AT BEDSIDE MOST OF SHIFT. PT AGREES THAT SHE NEEDS TO AND WILL TRY HARDER TO INCREASE NUTRITIONAL INTAKE, AND COOPERATE WITH PHYSICAL THERAPY HERE AND WHEN SHE IS AT [facility] IN [facility].
--- NOTE | 2017-08-13 20:00 | NUR ---
RECEIVED REPORT AT 1900. FOUND PT IN BED WITH AT BEDSIDE. PT SEEMED IN OK SPIRITS.
--- NOTE | 2017-08-13 22:00 | NUR ---
V/S ARE WDL, ALL LOBES ARE CLEAR, BOWEL TONES ARE PRESENT, PERIPHERAL EDEMA IS +1 ON ARMS AND +2 ON BOTH LEGS. SCRATCHES AND BRUISES ARE PRESENT ALL OVER. PT OVERALL IS STILL VERY WEAK. PT DID EAT SOME OF HER DINNER. PO INTAKE ENCOURAGED. BANANA BAG IS STILL GOING. WILL SL WHEN DONE.
--- NOTE | 2017-08-13 22:15 | NUR ---
OUTPUT FROM [id number] WAS 125. INTAKE WAS ONLY 100ML. PT SLEEPING AT THIS TIME.
--- NOTE | 2017-08-14 00:32 | NUR ---
PT IS SLEEPING AT THIS TIME.
--- NOTE | 2017-08-14 03:00 | NUR ---
PT IS SLEEPING AT THIS TIME.
--- NOTE | 2017-08-14 05:38 | NUR ---
V/S ARE WDL. PO INTAKE IS STILL POOR. PT HAS ONLY DRANK 100ML OF FLUIDS SO FAR. URINE OUTPUT SO FAR HAS BEEN 350ML. PT FOR THE MOST PART IS VERY FLAT IN AFFECT AND WITHDRAWN. DAUGHTER IS AT BEDSIDE. PT HAS RECEIVED TYLENOL PO 500MG X1 SO FAR FOR HER BACK PAIN. BILATERAL LEG EDEMA IS +2 BILATERAL ARM EDEMA IS +1, HER ARMS ARE STILL WEEPING. THERE ARE STILL BRUISES AND SCRATCHES ALL OVER HER BODY. PT SLEPT MOST OF THE SHIFT. NO NEW ISSUES NOTED SO FAR.
[2017-08-14] MEDS ORDERED: QUETIAPINE FUM100 MG PO (07:34)
[2017-08-14] MEDS ORDERED: SIMETHICONE80 MG PO (07:35)
[2017-08-14] MEDS ORDERED: MAG-AL LIQUID30 ML PO (07:35)
[2017-08-14] MEDS ORDERED: LIDODERM1 EACH TD (07:36)
--- NOTE | 2017-08-14 08:10 | NUR ---
ORDERS FOR SNF ADMIT FAXED TO [facility] [place]. FAX CONFIRMATION RECEIVED.
--- NOTE | 2017-08-14 08:53 | NUR ---
has been sitting up in chair eating breakfast. HERE VISITING, PHARMACIST IN ROOM GOING OVER MEDICATIONS.
--- NOTE | 2017-08-14 09:20 | NUR ---
RECEIVED A CALL FROM CHARGE NURSE, LOUIE AT [facility]. QUESTIONS ANSWERED. SHE STATES PATIENT CAN COME TO FACILITY, THEY ARE READY TO ADMIT. DISCUSSED THAT FAMILY IS TRANSPORTING HER AND NURSING WILL CALL TO GIVE REPORT WHEN SHE LEAVES OUR FACILITY.
--- NOTE | 2017-08-14 10:01 | NUR ---
DISCHARGE SNF PACKET LEFT WITH NURSING. CHARGE NURSE UPDATED.
--- NOTE | 2017-08-14 10:22 | NUR ---
patient requested leg bag, applied. family helping patient take bed bath, sales and catering coordinator into room also.
--- NOTE | 2017-08-14 10:24 | NUR ---
discussed with MD about low urine output and no BM since 08/08/17. no new orderes.
--- NOTE | 2017-08-14 11:10 | NUR ---
report called to nurse at [facility]. questions answered.
== END 2017-08-14 10:50 | disposition home or self-care (01) | DRG 871 ==
LOC: ED 12:20 → CCU 17:04 → MS 08-09 13:00 → CCU 08-11 15:51 → MS 08-14 10:50
PROVIDERS: ADMIT Internal Medicine
DX: A41.51 Sepsis due to Escherichia coli [E. coli] (principal); G93.41 Metabolic encephalopathy; E43 Unspecified severe protein-calorie malnutrition; N39.0 Urinary tract infection, site not specified; E72.20 Disorder of urea cycle metabolism, unspecified; Z98.84 Bariatric surgery status; F32.9 Major depressive disorder, single episode, unspecified; D69.6 Thrombocytopenia, unspecified; B96.20 Unspecified Escherichia coli [E. coli] as the cause of diseases classified elsewhere; K52.9 Noninfective gastroenteritis and colitis, unspecified; M54.9 Dorsalgia, unspecified
CPT/HCPCS: 36415; 51702; 51798; 70450; 71010; 74177; 80048; 80053; 80069; 80076; 81001; 82140; 82306; 82550; 82607; 82728; 82746; 83540; 83605; 83690; 83735; 84425; 84466; 84484; 85025; 85045; 85610; 85730; 86850; 86870; 86900; 86901; 86920; 87040; 87077; 87088; 87186; 93005; 93010; 94668; 96360; 97110; 97116; 97162; 97165; 97530; 97535; 99285; G0480; J0696; J2405; J3411; J3475; J3480; J7030; J7040; J7120; Q9967